=== PATIENT | female | born 1975 | race Caucasian/White ===

== ENCOUNTER 2018-12-01 06:00 | Emergency (ER) | payer MEDICAID ==
--- NOTE | 2018-12-01 06:04 | EDPHY ---
H & P Source: Patient Exam Limitations: No limitations - Medical/Surgical History Hx Asthma: No Hx Chronic Respiratory Disease: No Hx Diabetes: No Hx Cardiac Disease: No Hx Renal Disease: No Hx Cirrhosis: No Hx Alcoholism: No Hx HIV/AIDS: No Hx Splenectomy or Spleen Trauma: No Other PMH: HTN,DEPRESSION,ANXIETY - Family History Significant Family History: No pertinent family hx - Social History Smoking Status: Current every day smoker Alcohol Use: Other (Alcoholism in remission on naltrexone weekly) Drug Use: None Time Seen by Provider: 12/01/18 06:03 HPI/ROS: CHIEF COMPLAINT: Severe nausea, vomiting, abdominal pain HISTORY OF PRESENT ILLNESS: This is a 43-year-old female who went to bed last night at midnight. She was feeling well. She does note that she was a former drinker as of 6 months ago and now is on a current once a week shot of Vivitrol open (naltrexone close) for her alcoholism. She states that she has never been addicted to any other agents such as narcotics, benzodiazepines, or street drugs. Dinner last night consisted of chicken feed he does at around 6-7 p.m. No travel outside the country. No recent antibiotic use. No bad water sources such as camping. No one else is ill. She woke at 5:00 a.m. With profound sense of nausea. By her arrival here at 6: 00 a.m. She had already vomited 6 times with 3 different trips to the bathroom. At no point was emesis bloody or black. She has had no diarrhea. She cannot be certain but does not believe there was really abdominal pain to speak of at beginning when she woke up. Nonetheless she did develop some pain over the time. This is bilateral upper quadrants across the top. Does not involve the lower quadrants. Does not radiate to the back. She has never had pancreatitis. P: Not better after vomiting Q: Ache R: Upper abdomen without radiation to the chest S: Moderate T: Onset in the last hour, no prior such episodes REVIEW OF SYSTEMS: Constitutional: No fever, no chills. Eyes: No discharge ENT: No sore throat. Cardiovascular: No chest pain, no palpitations. Respiratory: No cough, shortness of breath, or wheezing. Gastrointestinal: See above Genitourinary: No hematuria or frequency. Musculoskeletal: No back pain. Skin: No rashes. Neurological: No headache. A 10 system review of systems was performed and is negative except for the noted findings in the HPI. (Cr Tamez) - Physical Exam Exam: General Appearance: Alert, moderate distress exhibiting hyper ventilation as well as some diaphoresis. Afebrile. Normal phonation. No respiratory distress. Eyes: Pupils equal and round no pallor or injection. No icterus ENT, Mouth: Mucous membranes slightly dry Pharynx without erythema or exudate. TM Clear. Neck: No adenopathy. Supple. No JVD. Trachea in midline. Respiratory: There are no retractions, lungs are clear to auscultation. Cardiovascular: Regular rate and rhythm. Abdomen: Soft, mild tender in the right upper quadrant more so than the left. Bowel sounds normal. Neurological: Ox3. No motor weakness. Sensation intact. Gait nl. Skin: Warm and dry, no rashes. Musculoskeletal: No joint swelling. Extremities: No edema. Homans sign negative. No cords. Psychiatric: Normal affect. Patient is oriented X 3, anxious. There is no agitation (Cr Tamez) Constitutional: Initial Vital Signs Temperature (C) 36.8 C 12/01/18 06:09 Heart Rate 99 12/01/18 06:09 Respiratory Rate 20 12/01/18 06:09 Blood Pressure 134/84 H 12/01/18 06:09 O2 Sat (%) 99 12/01/18 06:09 O2 Delivery Mode Room Air Allergies/Adverse Reactions: No Known Allergies Allergy (Verified 06/29/14 09:01) Home Medications: Medication Instructions Recorded Atenolol 05/07/13 Ortho Tri-Cyclen Lo 05/07/13 Paroxetine HCl 05/07/13 Spironolactone 12/01/18 Medical Decision Making ED Course/Re-evaluation: EKG: Essentially normal sinus rhythm with a rate of 64 with some baseline wandering secondary to artifact with normal T-waves, QTC is 463. Upon initial evaluation she continued to complain was sit for sleep about her nausea. Thus once the QTC was obtained at 463 and went ahead and ordered the following: Ativan 0.5 mg IV Phenergan 12.5 mg IV Care was turned over to Dr. Dominique at 7:00 a.m. At that time laboratory studies were pending as well as ultrasound the abdomen to rule out gallstones. (Cr Tamez) Other Provider: [address] Tamez. 43-year-old woman woke up at 5:00 a.m. This morning with acute onset of nausea vomiting. After several episodes of emesis she developed epigastric abdominal pain. No blood in her emesis. No dark tarry stools. Has been in her usual state of health. Abdomen is soft with some moderate epigastric tenderness, no right upper quadrant tenderness, no lower abdominal tenderness. 0810 patient is feeling better. Laboratory tests are unremarkable. Ultrasound shows a gallstone but no structure or the process. She is resting comfortably. No further vomiting. Abdomen is soft and benign. Plan will be for discharge home with follow-up with primary care physician as an outpatient. Will send her home with some oral nausea medications. (Mirza Dominique) - Data Points Medications Given: Discontinued Medications Fentanyl (Sublimaze) 50 mcg IVP EDNOW ONE Stop: 12/01/18 06:29 Last Admin: 12/01/18 06:57 Dose: Not Given Sodium Chloride (Ns) 1,000 mls @ 0 mls/hr IV ONCE ONE; Wide Open PRN Reason: Protocol Stop: 12/01/18 06:53 Last Admin: 12/01/18 06:56 Dose: 1,000 mls Ketorolac Tromethamine (Toradol) 15 mg IVP EDNOW ONE Stop: 12/01/18 06:49 Last Admin: 12/01/18 06:52 Dose: 15 mg Lorazepam (Ativan Injection) 0.5 mg IVP ONCE ONE Stop: 12/01/18 06:34 Last Admin: 12/01/18 06:40 Dose: 0.5 mg Ondansetron HCl (Zofran Odt 4 Mg Prepack#2) 1 btl TAKEHOME EDNOW ONE Stop: 12/01/18 08:13 Last Admin: 12/01/18 08:24 Dose: 1 btl Promethazine HCl (Phenergan) 12.5 mg IVP EDNOW ONE Stop: 12/01/18 06:29 Last Admin: 12/01/18 06:40 Dose: 12.5 mg Point of Care Test Results: CBC CBC Collection Date 12/01/18 CBC Collection Time 06:31 WBC 13.85 RBC 4.48 HGB 14 HCT 38.8 PLT 327 Neut # 11.36 Neut 82 LYMPH # 1.49 LYMPH 10.8 MCV 86.6 Chemistry 12/01/18 06:44 POC Sodium 136 mEq/L mEq/L (135-145) POC Potassium 3.8 mEq/L mEq/L (3.3-5.0) POC Chloride 106.0 mEq/L mEq/L (97-110) POC Total CO2 20 mEq/L L mEq/L (22-31) POC BUN 10 mg/dL mg/dL (7-23) POC Creatinine 1.1 mg/dL H mg/dL (0.6-1.0) POC Glucose 163 mg/dL H mg/dL (70-100) POC Calcium 9.4 mg/dL mg/dL (8.5-10.4) POC Total Bilirubin 0.7 mg/dL mg/dL (0.1-1.4) POC AST 41 IU/L IU/L (14-46) POC ALT 53 IU/L H IU/L (9-52) POC Alk Phosphatase 49 IU/L IU/L (38-126) POC Total Protein 6.9 g/dL g/dL (6.3-8.2) POC Albumin 4.1 g/dL g/dL (3.5-5.0) Urine Collection Date 12/01/18 Collection Time 07:55 HCG Results Negative Urine Dip Collection Date 12/01/18 Collection Time 07:55 Specific [place] (1.002-1.030) 1.015 PH (5.0-7.5) 8.5 Leukocytes (Negative) Negative Nitrites (Negative) Negative Protein (Negative) 2+ Glucose (Negative) Negative Ketones (Negative) Negative Urobilnogen (0.2-1.0 EU) 0.2 Bilirubin (Negative) Negative Blood (Negative) Negative Departure - Departure Disposition: Home, Routine, Self-Care Clinical Impression: Nausea & vomiting, Abdominal pain Condition: Good Instructions: Ondansetron (By mouth), Acute Nausea and Vomiting (ED) Additional Instructions: Follow up with primary care physician in 2-3 days for further evaluation. You may take Zofran as needed for nausea. Return to the emergency department for uncontrolled nausea vomiting, worsening pain, fevers or chills, fainting, or any other concerns. Referrals: Unknown,Unknown [Unknown] - As per Instructions
[2018-12-01] MEDS ORDERED: fentaNYL 100 MCG/2 ML INJ IVP ONE (06:28)
[2018-12-01] MEDS ORDERED: PROMETHAZINE HCL 25 MG/ML INJ IVP ONE (06:28)
[2018-12-01] MEDS ORDERED: LORazepam 2 MG/ML INJ IVP ONE (06:33)
[2018-12-01] MEDS ORDERED: fentaNYL 100 MCG/2 ML INJ ONE (06:47)
[2018-12-01] MEDS ORDERED: KETOROLAC 15 MG/1 ML SDV IVP ONE (06:48)
[2018-12-01] MEDS ORDERED: NS 1,000 ML IV ONE (06:52)
[2018-12-01] MEDS ORDERED: ONDANSETRON 4MG PREPACK#2 BTL TAKEHOME ONE (08:12)
[2018-12-01 08:16] VITALS: BP 126/80
--- NOTE | 2018-12-02 22:55 | CPEKG ---
Test Reason : OPEN Blood Pressure : / mmHG Vent. Rate : 064 BPM Atrial Rate : 065 BPM P-R Int : 141 ms QRS Dur : 097 ms QT Int : 448 ms P-R-T Axes : 007 -16 082 degrees QTc Int : 463 ms Sinus rhythm Borderline left axis deviation Low voltage, extremity and precordial leads Nonspecific T abnormalities, lateral leads Confirmed by Cr Tamez ([id number]) on 12/02/2018 10:55:01 PM Referred By: Cr Tamez Confirmed By:Cr Tamez
== END 2018-12-01 08:34 | disposition home or self-care (01) ==
LOC: CED 06:00
DX: R11.2 Nausea with vomiting, unspecified (principal); R10.13 Epigastric pain; K57.30 Diverticulosis of large intestine without perforation or abscess without bleeding; K76.0 Fatty (change of) liver, not elsewhere classified; E86.9 Volume depletion, unspecified; I10 Essential (primary) hypertension; F41.9 Anxiety disorder, unspecified; F32.9 Major depressive disorder, single episode, unspecified; F17.200 Nicotine dependence, unspecified, uncomplicated
CPT/HCPCS: 76705-PO; 80053-ER; 81025-ER; 85025-QW-ER; 96361-ER; 96374-ER; 96375-ER; 99284-ER; J1885; J2060; J2550; J3010

== ENCOUNTER 2018-12-03 01:13 | Inpatient (IN) | payer MEDICAID ==
[2018-12-03] MEDS ORDERED: ONDANSETRON DISINTEGRATING 4 MG TAB ONE (01:33)
--- NOTE | 2018-12-03 01:33 | EDPHY ---
H & P Stated Complaint: severe LUQ pain Time Seen by Provider: 12/03/18 01:33 - Personal History LMP (Females 10-55): 8-14 Days Ago Current Tetanus Diphtheria and Acellular Pertussis (TDAP): Yes - Medical/Surgical History Hx Asthma: No Hx Chronic Respiratory Disease: No Hx Diabetes: No Hx Cardiac Disease: No Hx Renal Disease: No Hx Cirrhosis: No Hx Alcoholism: No Hx HIV/AIDS: No Hx Splenectomy or Spleen Trauma: No Other PMH: HTN,DEPRESSION,ANXIETY - Social History Smoking Status: Current every day smoker Constitutional: Initial Vital Signs Temperature (C) 37 C 12/03/18 01:19 Heart Rate 67 12/03/18 01:19 Respiratory Rate 18 12/03/18 01:19 Blood Pressure 128/93 H 12/03/18 01:19 O2 Sat (%) 97 12/03/18 01:19 O2 Delivery Mode Room Air Allergies/Adverse Reactions: No Known Allergies Allergy (Verified 12/03/18 01:18) Home Medications: Medication Instructions Recorded Atenolol 05/07/13 Ortho Tri-Cyclen Lo 05/07/13 Paroxetine HCl 05/07/13 Spironolactone 12/01/18
[2018-12-03] MEDS ORDERED: ONDANSETRON DISINTEGRATING 4 MG TAB PO ONE (01:35)
--- NOTE | 2018-12-03 01:41 | EDPHY ---
H & P Stated Complaint: severe LUQ pain Time Seen by Provider: 12/03/18 01:33 HPI/ROS: CHIEF COMPLAINT: Abdominal pain, left greater than right HISTORY OF PRESENT ILLNESS: This is a 43-year-old female who is having recurrent abdominal pain. She had her 1st bout in the wee hours of the morning at about 5:00 a.m. On December 01. At that time she was seen by me and noted to be pacing, hot having difficulty holding still and particularly anxious. She was given doses of Phenergan 12.5 mg IV as well as Ativan 0.5 mg IV. Within 10 min she was resting comfortably in a side position on her left and had minimal pain. Subsequent evaluation at that time included a normal white count, normal liver functions, with a gallstone without signs of cholecystitis. She reports that when she went home the morning of the she has centrally slept the whole day until the next morning. On this morning, December 02 she had to go to work as there is no replacement. 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 There she felt particularly fatigued but there is no pain. In fact she had some form of Sonic breakfast for lunch and then dinner as well. She was feeling fine. Once home there was a sense of mild discomfort around 6:00 p.m. But she was able to fall sleep. She woke up at around midnight tonight with a sense of severe pain left greater than right it would not settle down. Thus she came for evaluation. She is not taking any for the pain. The pain did not radiate. It is strictly in the upper abdomen left more so than right and does not radiate to the shoulder blade or lower abdomen. There has been no difficulty with urination or burning as well as no hematuria. She has never had pains like these before. No associated nausea vomiting or diarrhea. Of note, she has a prior problem with alcoholism and takes meloxicam and shots weekly for such. P: Not worse with movement or breathing. Q: An ache R: Left upper quadrant without radiation S: Severe T: Woke up from sleep at midnight REVIEW OF SYSTEMS: Constitutional: No fever, no chills. Eyes: No discharge ENT: No sore throat. Cardiovascular: No chest pain, no palpitations. Respiratory: No cough, shortness of breath, or wheezing. Gastrointestinal: See above Genitourinary: No hematuria or frequency. Musculoskeletal: No back pain. Skin: No rashes. Neurological: No headache. A 10 system review of systems was performed and is negative except for the noted findings in the HPI. Source: Patient Exam Limitations: Clinical condition - Personal History LMP (Females 10-55): 8-14 Days Ago Current Tetanus Diphtheria and Acellular Pertussis (TDAP): Yes - Medical/Surgical History Hx Asthma: No Hx Chronic Respiratory Disease: No Hx Diabetes: No Hx Cardiac Disease: No Hx Renal Disease: No Hx Cirrhosis: No Hx Alcoholism: No Hx HIV/AIDS: No Hx Splenectomy or Spleen Trauma: No Other PMH: HTN,DEPRESSION,ANXIETY - Social History Smoking Status: Current every day smoker Alcohol Use: Other (Former drinker, on Naloxone shots weekly) Drug Use: None (Former drinker, taking Naloxne shots) - Physical Exam Exam: General Appearance: Alert, no distress. Afebrile. Normal phonation. No respiratory distress. No odor of alcohol Eyes: Pupils equal and round no pallor or injection. No icterus ENT, Mouth: Mucous membranes slightly dry Pharynx without erythema or exudate. TM Clear. Neck: No adenopathy. Supple. No JVD. Trachea in midline. Respiratory: There are no retractions, lungs are clear to auscultation. Cardiovascular: Regular rate and rhythm, without murmur. Abdomen: Soft, there is diffuse tenderness or present to the left upper quadrant enterolysis sent the right upper quadrant. There is no tenderness in the left or right lower quadrants. No rebound or guarding. There is percussion tenderness left upper quadrant. There is no CVA tenderness. Neurological: Ox3. No motor weakness. Sensation intact. Gait nl. Skin: Warm and dry, no rashes. Musculoskeletal: No joint swelling. Extremities: No edema. Homans sign negative. No cords. Psychiatric: Normal affect. Patient is oriented X 3. There is no agitation Constitutional: Initial Vital Signs Temperature (C) 37 C 12/03/18 01:19 Heart Rate 67 12/03/18 01:19 Respiratory Rate 18 12/03/18 01:19 Blood Pressure 128/93 H 12/03/18 01:19 O2 Sat (%) 97 12/03/18 01:19 O2 Delivery Mode Room Air Allergies/Adverse Reactions: No Known Allergies Allergy (Verified 12/03/18 01:18) Home Medications: Medication Instructions Recorded Atenolol 05/07/13 Ortho Tri-Cyclen Lo 05/07/13 Paroxetine HCl 05/07/13 Spironolactone 12/01/18 Naltrexone 12/03/18 Medical Decision Making - Diagnostics EKG Interpretation: EKG: Interpreted by me contemporaneously. Rhythm: Normal sinus rhythm. Heart rate 63 QTc 422 QRS: normal STT segment: normal T Waves: Normal Q waves none Summary: Normal Ekg Imaging Results: Ultrasound report received via fax transmission indicative of cholelithiasis with cholecystitis with gallbladder wall thickening of 5.1 mm however the common bile duct is not thick at 5.1 mm as well. Pancreas difficult to evaluate due to underlying gas. Her lipase did come back at 11:00 a.m. Suggestive of pancreatitis. ED Course/Re-evaluation: Upon initial presentation given her circumstances of the prior visit some 40 hr ago as well as her clinical response and she was given the following: Phenergan 12.5 mg IV. She had some improvement however the pain was still persistent thus, she was given the following: Ativan 0.5 mg IV Toradol 15 mg IV 0240 - I met with the patient again. Exam remains the same, persistent tenderness in the upper abdomen. However of note following: The pain is moderately better but still persistent She appears sedated, so probably more than I would have expected given 0.5 of Ativan. The white count is not elevated at 13+ Mild LFT abnormalities in ALT and AST but normal bili. Given the clinical constellation I suspected with bili colic on the and then today some evidence to suggest cholecystitis. Thereby I will make a call for admission. She agrees with [facility]. Case was discussed with the hospitalist service who recommends ultrasound to discern if there is in fact cholecystitis. She that the be the case that we would do a direct admission to General surgery. However if that is not the case then should be admission to the hospitalist service with consideration for HIDA scan in the morning. US showed: GB wall thickening at 5.1 mm with small pericholecystic fluid. CBD = 5.1. c/w Cholecystitis. Pain continues to be a problem with mediocre control with Ativan, Phenergan, Toradol and Ketamine titration. Unable to get narcotics due to naltrexone injections. We are not equiped for Ketamine drip so will re bolus as has worn off in the pas 2 hours. Duane Cagle paged at 04:50. Case d/w. Dr. Zepeda. recommends admit to Hospitalist Service. D/w Dr. Carmona. Differential Diagnosis: Differential diagnosis includes, but is not limited to: Gastroenteritis, dehydration, diverticulitis, hepatitis, pancreatitis, renal colic, kidney stones, ureterolithiasis, cholecystitis, appendicitis, gastritis, mesenteric adenitis, food poisoning, bacterial dysentery. - Data Points Laboratory Results: 12/03/18 12/03/18 12/03/18 02:05 02:05 02:04 POC Blood Source VENOUS Patient Temperature 37.0 DEGREES DEGREES POC VBG pH 7.52 H (7.31-7.42) POC VBG pCO2 21 mmHg L mmHg (40-44) POC VBG pO2 48 mmHg H mmHg (35-40) POC VBG HCO3 17 mEq/L L mEq/L (22-26) POC VBG Total CO2 18 mEq/L L mEq/L (21-27) POC VBG Base Excess -6.0 mEq/L L mEq/L (-2.5-2.5) POC Mix VBG O2 Sat 89 % H % (65-75) POC Sodium 142 mEq/L mEq/L (135-145) POC Potassium 4.0 mEq/L mEq/L (3.3-5.0) POC Chloride 111.0 mEq/L H mEq/L (97-110) POC Total CO2 22 mEq/L mEq/L (22-31) POC BUN 15 mg/dL mg/dL (7-23) POC Creatinine 1.0 mg/dL mg/dL (0.6-1.0) POC Glucose 115 mg/dL H mg/dL (70-100) POC Lactic Acid Cral[place] 1.4 mmol/L mmol/L (0.7-2.1) POC Calcium 9.4 mg/dL mg/dL (8.5-10.4) POC Total Bilirubin 0.7 mg/dL mg/dL (0.1-1.4) POC AST 114 IU/L H IU/L (14-46) POC ALT 134 IU/L H IU/L (9-52) POC Alk Phosphatase 66 IU/L IU/L (38-126) POC Troponin I 0.01 ng/mL ng/mL (0.00-0.08) POC Total Protein 7.1 g/dL g/dL (6.3-8.2) POC Albumin 3.9 g/dL g/dL (3.5-5.0) Lipase 12/03/18 01:55 POC Blood Source Patient Temperature POC VBG pH POC VBG pCO2 POC VBG pO2 POC VBG HCO3 POC VBG Total CO2 POC VBG Base Excess POC Mix VBG O2 Sat POC Sodium POC Potassium POC Chloride POC Total CO2 POC BUN POC Creatinine POC Glucose POC Lactic Acid Carlos POC Calcium POC Total Bilirubin POC AST POC ALT POC Alk Phosphatase POC Troponin I POC Total Protein POC Albumin Lipase 1168 IU/L H IU/L (23-300) Medications Given: Discontinued Medications Ketamine HCl 8 mg/ Syringe 0.16 mls @ 9.6 mls/hr IVP ONCE ONE Stop: 12/03/18 02:44 Last Admin: 12/03/18 03:12 Dose: 0.16 mls Ketamine HCl 8 mg/ Syringe 0.16 mls @ 9.6 mls/hr IVP ONCE ONE Stop: 12/03/18 04:46 Last Admin: 12/03/18 04:55 Dose: 0.16 mls Ketorolac Tromethamine (Toradol) 15 mg IVP EDNOW ONE Stop: 12/03/18 02:05 Last Admin: 12/03/18 02:15 Dose: 15 mg Ketorolac Tromethamine (Toradol) 7.5 mg IVP EDNOW ONE Stop: 12/03/18 04:01 Last Admin: 12/03/18 04:48 Dose: 7.5 mg Lorazepam (Ativan Injection) 0.5 mg IVP ONCE ONE Stop: 12/03/18 02:05 Last Admin: 12/03/18 02:14 Dose: 0.5 mg Lorazepam (Ativan Injection) 0.25 mg IVP EDNOW ONE Stop: 12/03/18 04:46 Last Admin: 12/03/18 04:59 Dose: 0.25 mg Ondansetron HCl (Zofran Odt) 4 mg PO EDNOW ONE Stop: 12/03/18 01:36 Last Admin: 12/03/18 01:36 Dose: 4 mg Promethazine HCl (Phenergan) 12.5 mg IVP ONCE ONE Stop: 12/03/18 01:44 Last Admin: 12/03/18 02:14 Dose: 12.5 mg Promethazine HCl (Phenergan) 6.25 mg IVP ONCE ONE Stop: 12/03/18 03:18 Last Admin: 12/03/18 03:20 Dose: 6.25 mg Point of Care Test Results: CBC CBC Collection Date 12/03/18 CBC Collection Time 01:45 WBC 10.10 RBC 4.30 HGB 13.3 HCT 37.6 PLT 346 Neut # 6.96 Neut 68.9 LYMPH # 1.95 LYMPH 19.3 MCV 87.4 Chemistry 12/03/18 12/03/18 02:05 02:04 POC Sodium 142 mEq/L mEq/L (135-145) POC Potassium 4.0 mEq/L mEq/L (3.3-5.0) POC Chloride 111.0 mEq/L H mEq/L (97-110) POC Total CO2 22 mEq/L mEq/L (22-31) POC BUN 15 mg/dL mg/dL (7-23) POC Creatinine 1.0 mg/dL mg/dL (0.6-1.0) POC Glucose 115 mg/dL H mg/dL (70-100) POC Calcium 9.4 mg/dL mg/dL (8.5-10.4) POC Total Bilirubin 0.7 mg/dL mg/dL (0.1-1.4) POC AST 114 IU/L H IU/L (14-46) POC ALT 134 IU/L H IU/L (9-52) POC Alk Phosphatase 66 IU/L IU/L (38-126) POC Troponin I 0.01 ng/mL ng/mL (0.00-0.08) POC Total Protein 7.1 g/dL g/dL (6.3-8.2) POC Albumin 3.9 g/dL g/dL (3.5-5.0) Blood Gas/Lactic Acid-Arterial 12/03/18 02:05 POC Blood Source VENOUS Blood Gas/Lactic Acid-Venous 12/03/18 02:05 POC VBG pH 7.52 H (7.31-7.42) POC VBG pCO2 21 mmHg L mmHg (40-44) POC VBG pO2 48 mmHg H mmHg (35-40) POC VBG HCO3 17 mEq/L L mEq/L (22-26) POC VBG Total CO2 18 mEq/L L mEq/L (21-27) POC VBG Base Excess -6.0 mEq/L L mEq/L (-2.5-2.5) POC Mix VBG O2 Sat 89 % H % (65-75) POC Lactic Acid Carlos 1.4 mmol/L mmol/L (0.7-2.1) Urine Dip Collection Date 12/03/18 Collection Time 01:55 Specific Tripp (1.002-1.030) 1.025 PH (5.0-7.5) 6.0 Leukocytes (Negative) Trace Nitrites (Negative) Positive Protein (Negative) Trace Glucose (Negative) Negative Ketones (Negative) Trace Urobilnogen (0.2-1.0 EU) 2.0 Bilirubin (Negative) Test Not Performed Blood (Negative) 1+ Departure - Departure Disposition: [facility] Inpatient Acute Clinical Impression: Acute cholecystitis Abdominal pain Qualifiers: Abdominal location: upper abdomen, unspecified Qualified Code(s): R10.10 - Upper abdominal pain, unspecified Pancreatitis Qualifiers: Chronicity: acute Pancreatitis type: biliary Acute pancreatitis complication: unspecified Qualified Code(s): K85.10 - Biliary acute pancreatitis without necrosis or infection Condition: Fair Referrals: Patient,NotPresent [Primary Care Provider] - As per Instructions
[2018-12-03] MEDS ORDERED: PROMETHAZINE HCL 25 MG/ML INJ IVP ONE ×2 (01:43→03:17)
[2018-12-03] MEDS ORDERED: LORazepam 2 MG/ML INJ IVP ONE ×3 (02:04→04:46)
[2018-12-03] MEDS ORDERED: KETOROLAC 15 MG/1 ML SDV IVP ONE ×2 (02:04→04:00)
[2018-12-03] MEDS ORDERED: KETAMINE IVP ONE ×2 (02:43→04:45)
[2018-12-03] MEDS ORDERED: KETAMINE 500 MG/10 ML VIAL ONE (03:02)
[2018-12-03] MEDS ORDERED: KETOROLAC 15 MG/1 ML SDV ONE (03:50)
[2018-12-03] MEDS ORDERED: NS 1,000 ML IV ONE (04:57)
--- NOTE | 2018-12-03 05:09 | CPEKG ---
Test Reason : OPEN Blood Pressure : / mmHG Vent. Rate : 063 BPM Atrial Rate : 063 BPM P-R Int : 141 ms QRS Dur : 094 ms QT Int : 412 ms P-R-T Axes : -08 -30 047 degrees QTc Int : 422 ms Sinus rhythm Left axis deviation Low voltage, precordial leads Confirmed by Cr Tamez ([id number]) on 12/03/2018 5:09:07 AM Referred By: Cr Tamez Confirmed By:Cr Tamez
[2018-12-03] MEDS ORDERED: ACETAMINOPHEN 325 MG TAB PO PRN ×2 (07:00→08:07)
[2018-12-03] MEDS ORDERED: PROMETHAZINE HCL 25 MG/ML INJ IVP PRN (07:00)
[2018-12-03] MEDS ORDERED: ONDANSETRON 4 MG/2 ML VIAL IVP PRN ×3 (07:00→16:39)
[2018-12-03] MEDS ORDERED: ONDANSETRON DISINTEGRATING 4 MG TAB PO PRN ×2 (07:00→08:07)
[2018-12-03] MEDS ORDERED: NS 1,000 ML IV SCH (07:15)
[2018-12-03] MEDS ORDERED: CIPROFLOXACIN 400 MG/DEXTROSE 200 ML IV SCH (09:00)
[2018-12-03] MEDS: NICOTINE 14 MG/24 HR PATCH TD SCH (09:27)
--- NOTE | 2018-12-03 09:32 | GHP ---
[f rep st] HISTORY AND PHYSICAL DATE OF ADMISSION: 12/03/2018 CHIEF COMPLAINT: Right upper quadrant pain that radiates over to the left upper quadrant. HISTORY OF PRESENT ILLNESS: The patient is a 43-year-old female who has a past medical history of alcohol use and receives monthly naltrexone injections, who presented to the Urgent Care with recurrent abdominal pain. Her initial symptoms started at 5 in the morning on December 01. She was seen at that at the emergency room and was extremely anxious. She was given Phenergan as well as Ativan and felt better. She was then discharged home. Then on December 02, she went to work. 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 She was uncomfortable throughout the day. When she got home in the evening, she started to feel poorly. She had severe abdominal pain in the left greater than the right. She came to the emergency room for further evaluation. The pain does not radiate. She has had no fevers, but has frequent bouts of chills. The pain does not increase with eating. She had 3 bouts of emesis yesterday and 2 this morning. She denies any diarrhea. During my interview, she is not very talkative and would prefer to sleep. She had an abdominal ultrasound that was performed that showed cholelithiasis with gallbladder wall thickening and pericholecystic fluid consistent with acute cholecystitis. PAST SURGICAL HISTORY: None. PAST MEDICAL HISTORY: 1. Hypertension. 2. Depression. 3. Anxiety. 4. 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 SOCIAL HISTORY: She is currently in a relationship. She has 2 children. She is a current smoker and smokes approximately a pack a week. 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 FAMILY HISTORY: Her mom is healthy. Her father is in hospice. She did not want to state why. ALLERGIES: No known allergies. HOME MEDICATIONS: Include Aldactone, Paxil, control, naltrexone, and atenolol. Please note the doses of these medications have not been confirmed at time of dictation. REVIEW OF SYSTEMS: A 10-point review of system was performed and was negative other than pertinent positives in the HPI and past medical history. PHYSICAL EXAM: GENERAL: The patient is a 43-year-old female who appears quite uncomfortable during my interview and appears her stated age. VITAL SIGNS: Blood pressure is 143/93, heart rate is 61, respiratory rate of 14, O2 sats on room air 94%, temperature is 36.7 Celsius. EYES: Pupils are equal and reactive. EOMs are intact. No conjunctival injection noted. ENT: Normal ears , hearing intact. Oral airway is dry. NECK: Trachea is midline. CARDIOVASCULAR : She is in a regular rate and rhythm. No murmurs, rubs, or gallops noted. CHEST: Lungs normal respiratory effort. ABDOMEN: Soft. It is tender particularly in the right upper quadrant area without rebound or guarding. SKIN : Her face is very flushed. MUSCULOSKELETAL: Moving her upper and lower extremity strength without difficulty. PSYCHIATRIC: She is alert and oriented. Her affect is very flat. She appears to have normal judgment, insight and normal memory. DATA: Reviewed. Ultrasound was performed which shows cholelithiasis with cholecystitis with gallbladder wall thickening of 5.1 mm. However, the common bile duct is not thick at 5.1 mm. The pancreas was difficult to evaluate due to underlying gas. LABORATORY DATA: From [facility] shows a white blood cell count of 10, hemoglobin 13.3 , hematocrit of 37.6. Chemistry and liver enzymes are noted as sodium of 142, chloride of 111, glucose of 115. Her venous lactic acid is 1.4. Her AST is 114 , ALT is 134, alkaline phosphatase is 66, lipase is 1168. I reviewed the patient's care with greg Alonzo for the hospitalist group. ASSESSMENT/PLAN: 1. Acute cholecystitis. Will treat her with ceftriaxone and Flagyl. Will contact the surgical team in regard to the patient's admission to the hospital. Will keep her n.p.o. and give her supportive care. 2. Pain due to this. She is on naltrexone. She said her last dose was approximately 2 weeks ago. If she needs opioids, it is important to note that she will respond to a lower dose. The recommendation is for management of her pain to consider any alternative opioid therapy. For now will treat her with Toradol, Tylenol and Phenergan or Zofran for the nausea. 3. Concern for pancreatitis with an elevated lipase. Likely has gallstone pancreatitis. Will give her supportive care with IV hydration. 4. Nicotine dependence. Will order her a Nicotine patch. 5. Deep venous thrombosis prophylaxis low risk. Will order athrombotic pumps. 6. Hypertension. Resumed home medication. 7. Depression. Resumed home medication. 8. She will likely require greater than a 2-midnight stay for the acute cholecystitis, as well as pancreatitis. 9. Code status: Full. /[id number]/MODL MTDD
[2018-12-03] MEDS: traMADol 50 MG TAB PO PRN (10:15)
[2018-12-03] MEDS: ATENOLOL 25 MG TAB PO SCH (10:19)
--- NOTE | 2018-12-03 10:50 | PDMN ---
Medical Necessity Medical necessity: [facility] M555 Gallbladder or Bile Duct Inflammation or Stone, A-2 days: 43 yo w/ severe abd pain. Eval reveals acute cholecystitis w/ concern for pancreatitis. RUQ pain. WBC 10.1 per ED report, Lipase 1168, AST 114, ALT 134. Surg consult. Meets [facility] IP status for M555 for acute choleystitis w/ RUQ tenderness, WBC>10 and AST/ALT.1.5x the norm. Hx alcoholism on Naltrex, HTN, depression, anxiety
[2018-12-03] MEDS: KETOROLAC 15 MG/1 ML SDV IVP SCH ×3 (11:24→23:41)
[2018-12-03] MEDS: PARoxetine HCL 20 MG TAB PO SCH (11:37)
--- NOTE | 2018-12-03 12:07 | GCON ---
[f rep st] CONSULTATION CHIEF COMPLAINT: Abdominal pain. HISTORY OF PRESENTING ILLNESS: 43-year-old female with epigastric and left upper quadrant abdominal pain that initially onset 2 days ago during slumber. This pain was mildly improved the following day. She denies eating any meals which improved her nausea and pain. Does not appear to be associated with food. Also complains of nausea with one episode of bilious emesis. Has been chilled, but has not taken a temperature at home. Her daughter pointed out yesterday the patient looked jaundiced. Bowel movements and urination normal. Denies acholic stools. Denies dark-colored urine. She has significant history of alcohol abuse. The patient states that she quit drinking alcohol 6 months ago due to fatty liver disease, possible alcoholic pancreatitis, and interference with her work and social life. Her pain has since improved since her hospitalization and administration of analgesics. PAST MEDICAL HISTORY: Depression, anxiety, obsessive-compulsive disorder, and hypertension. HOME MEDICATIONS: Tri Sprintec, doxycycline, atenolol, alprazolam, spironolactone, and Paxil. 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 She lives at home alone. She has 2 children. She smokes tobacco and marijuana, sober of alcohol for 6 months. FAMILY HISTORY: Noncontributory. REVIEW OF SYSTEMS: A 10-point review of system was reviewed and otherwise negative except for as stated in HPI above. PHYSICAL EXAM: VITAL SIGNS: Afebrile. Blood pressure 150/93, heart rate 62, respiratory rate 16, O2 saturation 98 on room air. Temperature 37.1 degrees Celsius. GENERAL: Appears comfortable in bed, mildly sedated. HEENT: Anicteric. CARDIOVASCULAR: Regular rate and rhythm. LUNGS: Clear to auscultation bilaterally. ABDOMEN: Obese, soft, minimal epigastric and left upper quadrant tenderness on palpation. No rebound or guarding. Negative Olea sign. EXTREMITIES: Unremarkable. NEUROLOGIC: Nonfocal. SKIN: No rashes. Normal. LAB RESULTS: Electrolytes overall unremarkable. Lipase 1168, AST 114, ALT 134 , total bilirubin 0.7. IMAGING: Abdominal ultrasound directly reviewed on PACS with Dr. Spivey; cholelithiasis with gallbladder wall thickening and pericholecystic fluid consistent with acute cholecystitis. ASSESSMENT: Acute cholecystitis and pancreatitis. PLAN: Recommend laparoscopic cholecystectomy with intraoperative cholangiogram given her mildly elevated liver enzyme, lipase, and ultrasound imaging. Abdominal pain and labs consistent with pancreatitis, likely gallstone pancreatitis vs alcoholic pancreatitis given her imaging and reported sobriety 6 months. Risks and benefits of procedure were reviewed including bleeding, infection, retained gallstone necessitating ERCP, open conversion and bile duct injury. Expected recovery reviewed with the patient. We will arrange for operating room time this afternoon with Dr. Simon. Continue with Flagyl and ceftriaxone. Diet NPO. All patient's questions were addressed. The patient's case was discussed with Dr. Simon. /[id number]/MODL MTDD
[2018-12-03] MEDS ORDERED: LR 1,000 ML IV ONE (12:46)
[2018-12-03] MEDS ORDERED: LIDOCAINE 1% 2 ML INJ ONE (12:48)
--- NOTE | 2018-12-03 14:26 | SOAPPROG ---
SOAP Progress Note Assessment/Plan: Assessment/Plan: Patient seen and examined. Consultation note from Ies[facility] RODRIGUE[facility] summarizes findings. Likely gallstone pancreatitis plan on laparoscopic cholecystectomy with intraoperative cholangiogram. All questions addressed. Written consent obtained. Patient is already on antibiotics which can be discontinued after surgery. 12/03/18 14:25 Objective: Vital Signs Temp Pulse Resp BP Pulse Ox 36.8 C 63 16 123/84 H 97 12/03/18 13:01 12/03/18 13:01 12/03/18 13:01 12/03/18 13:01 12/03/18 13:01 12/02/18 12/03/18 12/04/18 05:59 05:59 05:59 Intake Total 1000 150 Output Total 200 Balance 800 150 ICD10 Worksheet Patient Problems: Problems Problem Status Onset Abdominal pain Acute Acute cholecystitis Acute Pancreatitis Acute
--- NOTE | 2018-12-03 14:48 | ASMTCMCOM ---
CM Note CM Note Notes: Pt is a 43 y/o female admitted for right upper quadrant pain. Pt went to have her gallbladder removed this afternoon and CM was unable to meet w/ her. Pt has a hx of etoh and has been sober for 6 months. Pt gets naltrexone injections to help w/ etoh cravings. CM made a referral to [facility]. Pt has a hx of depression and anxiety. 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 Pt will most likely d/c independent. No therapies ordered at this time. CM available for changes. Plan: Independent Date Signed: 12/03/2018 02:46 PM Electronically Signed By:ANDREA Ahn
--- NOTE | 2018-12-03 14:59 | PDANEPAE ---
ANE Past Medical History - Cardiovascular History Hx Hypertension: Yes Hx Arrhythmias: No Hx Chest Pain: No Hx Coronary Artery / Peripheral Vascular Disease: No Hx CHF / Valvular Disease: No Hx Palpitations: No - Pulmonary History Hx COPD: No Hx Asthma/Reactive Airway Disease: No Hx Recent Upper Respiratory Infection: No Hx Oxygen in Use at Home: No Hx Sleep Apnea: No Sleep Apnea Screening Result - Last Documented: Positive - Neurologic History Hx Cerebrovascular Accident: No Hx Seizures: No Hx Dementia: No - Endocrine History Hx Diabetes: No - Neurological & Psychiatric Hx Hx Neurological and Psychiatric Disorders: Yes Neurological / Psychiatric History Comment: Anxiety, OCD - GI History Hx Gastrointestinal Disorders: Yes Gastrointestinal History Comment: Acute cholecystitis and gallstone pancreatitis ANE Review of Systems Review of Systems: ANE Patient History - Allergies Allergies/Adverse Reactions: No Known Allergies Allergy (Verified 12/03/18 01:18) - Home Medications Home Medications: Atenolol [Tenormin 25 mg (*)] 25 mg PO DAILY 05/07/13 [Last Taken 12/02/18] PARoxetine HCL [Paxil] 40 mg PO DAILY 05/07/13 [Last Taken 12/02/18] Spironolactone [Aldactone 25 MG (*)] 25 mg PO DAILY 12/01/18 [Last Taken ] ALPRAZolam [Xanax 0.5 MG (*)] 0.5 - 1 mg PO DAILY PRN 12/03/18 [Last Taken Unknown] Doxycycline Hyclate [Vibramycin 100 MG (*)] 100 mg PO BID 12/03/18 [Last Taken 12/02/18 21:00] Tri-Sprintec 1 each PO DAILY 12/03/18 [Last Taken 12/02/18] - NPO status NPO Since - Liquids (Date): 12/02/18 NPO Since - Liquids (Time): 00:00 NPO Since - Solids (Date): 12/02/18 NPO Since - Solids (Time): 00:00 - Smoking Hx Smoking Status: Current every day smoker - Alcohol Use Alcohol Use: Other (Former drinker, on Naloxone shots weekly) ANE Labs/Vital Signs - Vital Signs Blood Pressure: 123/84 Heart Rate: 63 Respiratory Rate: 16 O2 Sat (%): 97 Height: 167.64 cm Weight: 77.111 kg ANE Physical Exam - Airway Neck exam: FROM Mallampati Score: Class 2 Mouth exam: normal dental/mouth exam - Pulmonary Pulmonary: clear to auscultation - Cardiovascular Cardiovascular: regular rate and rhythym - ASA Status ASA Status: II ANE Anesthesia Plan Anesthesia Plan: general endotracheal anesthesia
[2018-12-03] MEDS ORDERED: fentaNYL 100 MCG/2 ML INJ IVP ONE ×2 (15:04→15:31)
[2018-12-03] MEDS ORDERED: fentaNYL 100 MCG/2 ML INJ ONE ×2 (15:04→17:36)
[2018-12-03] MEDS ORDERED: MIDAZOLAM 2 MG/2 ML VIAL IVP ONE (15:34)
[2018-12-03] MEDS ORDERED: LIDOCAINE 1% 300 MG/30 ML SDV ONE (15:41)
[2018-12-03] MEDS ORDERED: BUPIVACAINE 0.5% 30 ML SDV ONE ×2 (15:42→15:51)
[2018-12-03] MEDS ORDERED: HYDROmorphONE/DILAUDID 2 MG/ML INJ ONE (15:42)
[2018-12-03] MEDS ORDERED: SUCCINYLCHOLINE CHLORIDE 200 MG/10 ML SYR IVP ONE (15:42)
[2018-12-03] MEDS ORDERED: IOTHALAMATE MEG (CONRAY) 50 ML VIAL IV ONE (15:42)
[2018-12-03] MEDS ORDERED: PROPOFOL 200 MG/20 ML VIAL ONE (15:42)
[2018-12-03] MEDS ORDERED: METOCLOPRAMIDE 10 MG/2 ML VIAL ONE (15:45)
[2018-12-03] MEDS ORDERED: KETOROLAC 30 MG/1 ML SDV ONE (16:02)
[2018-12-03] MEDS ORDERED: DEXAMETHASONE 4 MG/ML VIAL ONE (16:10)
[2018-12-03] MEDS ORDERED: ONDANSETRON 4 MG/2 ML VIAL ONE (16:10)
[2018-12-03] MEDS ORDERED: ROCURONIUM 50 MG/5 ML VIAL ONE (16:18)
[2018-12-03] MEDS ORDERED: NALOXONE HCL 0.4 MG/ML INJ IVP PRN (16:39)
[2018-12-03] MEDS ORDERED: ALBUTEROL 3 ML DEYVIAL IH PRN (16:39)
[2018-12-03] MEDS ORDERED: LABETALOL HCL 5 MG/ML 20 ML MDV IVP PRN (16:39)
[2018-12-03] MEDS ORDERED: NEOSTIGMINE METHYLSULFATE 10 MG/10 ML MDV ONE (16:48)
[2018-12-03] MEDS ORDERED: GLYCOPYRROLATE 0.2 MG/1 ML VIAL ONE ×2 (16:48)
[2018-12-03] MEDS ORDERED: HYDROmorphONE/DILAUDID 1 MG/ML INJ IVP PRN (17:21)
--- NOTE | 2018-12-03 17:23 | POSTANESTH ---
Post Anesthetic Evaluation Cardiovascular Status: Similar to Pre-Op Cond Respiratory Status: Similar to Pre-op Cond. Level of Consciousness/Mental Status: Mildly Sleepy, Arousable Pain Control: Adequate, Prn Tx Ordered Nausea/Vomiting Control: Adequate, Prn Tx Ordered Complications Possibly Related to Anesthesia: None Noted
[2018-12-03] MEDS ORDERED: HYDROmorphONE/DILAUDID 1 MG/ML INJ ONE (17:36)
[2018-12-03] MEDS: HYDROmorphONE/DILAUDID 1 MG/ML INJ IVP PRN ×2 (17:37→17:49)
[2018-12-03] MEDS: fentaNYL 100 MCG/2 ML INJ IVP PRN ×2 (17:37→17:43)
[2018-12-03] MEDS: oxyCODONE IR 5 MG TAB PO PRN (20:04)
[2018-12-04] MEDS: oxyCODONE IR 5 MG TAB PO PRN (02:47)
[2018-12-04] MEDS: traMADol 50 MG TAB PO PRN (03:38)
[2018-12-04 04:17] LABS: PLATELET COUNT 298 10^3/uL (150-400)
[2018-12-04] MEDS: KETOROLAC 15 MG/1 ML SDV IVP SCH ×2 (05:59→11:43)
[2018-12-04 08:38] VITALS: BP 115/78
[2018-12-04] MEDS: NICOTINE 14 MG/24 HR PATCH TD SCH (08:46)
[2018-12-04] MEDS: ATENOLOL 25 MG TAB PO SCH (08:47)
[2018-12-04] MEDS: PARoxetine HCL 20 MG TAB PO SCH (08:47)
--- NOTE | 2018-12-04 11:16 | ASDISCHSUM ---
Discharge Information Plan Status:Home with No Needs Medically Cleared to Leave:12/04/2018 Discharge Date:12/04/2018 CM D/C Disposition:Home, Routine, Self-Care ADT D/C Disposition:Home, Routine, Self-Care Projected Discharge Date:12/04/2018 Transportation at D/C: Discharge Delay Reason: Follow-Up Date:12/04/2018 Discharge Slot: Final Diagnosis: Placement Information Patient Contact Information Contact Name:KYM Relationship:Other Address: Work Phone: City: [facility] Phone: State/Zip Code: Email: Financial Information Financial Class:Medicaid Primary Plan Desc:[employer] [place] Primary Plan Number:[id number] Secondary Plan Desc: Secondary Plan Number: Assessment Information LACE LACE Length of stay for Answers: 1 day current admission Acuity / Level of Answers: Yes Care: Did the patient have an inpatient admission? Comorbidities - select Answers: Other Notes: HTN all that apply # of Emergency department Answers: 1-2 visits in the last 6 months Social determinants Answers: Mental health diagnosis (anxiety, depression, pers onality disorders, etc.) Score: 9 Date Signed: 12/04/2018 11:13 AM Electronically Signed By:Reba Gilman RN [facility] Progress Note CM Note CM Note Notes: Pt is a 43 y/o female admitted for right upper quadrant pain. Pt went to have her gallbladder removed this afternoon and CM was unable to meet w/ her. Pt has a hx of etoh and has been sober for 6 months. Pt gets naltrexone injections to help w/ etoh cravings. CM made a referral to [facility]. Pt has a hx of depression and anxiety. 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 Pt will most likely d/c independent. No therapies ordered at this time. CM available for changes. Plan: Independent Date Signed: 12/03/2018 02:46 PM Electronically Signed By:ANDREA Ahn Case Management Discharge Plan Note Case Management Discharge Discharge Order Complete? Answers: Yes Patient to Obtain Answers: Independently Medications Discharge Comments Notes: 12/04/2018 Case Management Note Pt to discharge independent with follow up as directed. Date Signed: 12/04/2018 11:14 AM Electronically Signed By:Reba Gilman RN Intervention Information
--- NOTE | 2018-12-11 22:11 | GDS ---
[f rep st] DISCHARGE SUMMARY DISCHARGE DIAGNOSES: 1. Acute cholecystitis, status post cholecystectomy. 2. Gallstone pancreatitis, improved. 3. Hypertension. 4. Depression. 5. History of alcohol abuse, in remission, on monthly naltrexone injections. 6. Nonspecific liver lesion, recommend outpatient followup. ELECTRICIAN TECHNICIAN: Dr. Jayden Simon, general surgery. PROCEDURES: 1. Abdominal ultrasound, December 03, 2018, showed cholelithiasis with gallbladder wall thickening and per icholecystic fluid consistent with acute cholecystitis. In addition, there is a nonspecific hyperech oic lesion in left lobe of the liver, 2 cm. 2. Laparoscopic cholecystectomy, December 03, 2018. HISTORY: For details, please see history and physical dated December 03, 2018. In brief, the patient is a 43-year-old female with history of alcohol abuse, who has maintained sobriety with monthly naltrexon e injections, as well as hypertension and depression, presented to the emergency department with righ t upper quadrant abdominal pain. Workup was consistent with acute cholecystitis. [facility]. HOSPITAL COURSE: The patient was admitted to the med/surg unit. She was evaluated by General Surger y and treated with ceftriaxone and Flagyl. She was taken to the operating room and had a laparoscopi c cholecystectomy without complication. The following day, she was in good spirits, tolerating a ful l diet. Her pain was controlled, and she strongly wished to discharge home. I discussed the case wi th Dr. Simon, and he was comfortable with her discharging home with close outpatient followup. DISPOSITION: Patient is discharged home in stable condition. FOLLOWUP: 1. Dr. Jayden Simon in 1 week. 2. Primary Care. DISCHARGE MEDICATIONS: Please see [employer] for completed outpatient medication list. New medication s on discharge include: 1. Tylenol 1000 mg p.o. q.8 hours p.r.n. 2. Oxycodone 5 to 10 mg p.o. q.6 hours p.r.n., #20, no refills. 3. Colace 100 mg p.o. b.i.d., #30, no refills. She will continue all other outpatient medications as previously prescribed. /[id number]/MODL
--- NOTE | 2018-12-11 23:16 | GOP ---
[f rep st] OPERATIVE REPORT DATE OF OPERATION: SURGEON: Jayden Simon MD DISTRICT CAPTAIN: Shawna Lua MACHINE SETTER. ANESTHESIOLOGIST: Mazin Clay MD. PREOPERATIVE DIAGNOSIS: Gallstone pancreatitis. POSTOPERATIVE DIAGNOSIS: Gallstone pancreatitis. PROCEDURE PERFORMED: Laparoscopic cholecystectomy with intraoperative cholangiogram. FINDINGS: SPECIMENS: Gallbladder to permanent pathology. ESTIMATED BLOOD LOSS: 10 mL. DESCRIPTION OF PROCEDURE: Patient was brought to the operating room after induction of endotracheal anesthesia in the supine position. Abdomen was prepped with chlorhexidine and draped sterilely. Burak e-out procedure was then performed according to institutional standards. Local anesthetic was infuse d in skin and subcutaneous tissues of the trocar sites, and supraumbilical trocar placement was done in standard fashion. The abdomen was inspected for any other pathology. There was a small amount of free fluid in the right upper quadrant. Otherwise the gallbladder had adhesions to the duodenum and the omentum. The patient was placed in left down and head up position to facilitate the surgery, an d the gallbladder fundus was grasped with a blunt grasper, elevated the cystic duct, and cystic arter y identified in the triangle of Calot, and a ductotomy was created to allow passage of a cholangiocat heter through a separate stab incision. The cholangiogram was performed under fluoroscopy, demonstra ting normal flow of the contrast into the biliary tree. The intra and extrahepatic biliary systems w ere not dilated, and there was no sign of a filling defect. The left and right hepatic radicles were opacified, and no other pathology was noted. After completion of cholangiogram, the catheter was re moved. The cystic duct and cystic artery were triply clipped and ligated. The gallbladder was taken off a somewhat intrahepatic position using electrocautery. Hemostasis was assured. The gallbladder was brought out through the umbilical incision using a blunt grasper, and hemostasis was then assure d. Abdomen was deflated. Working trocars were removed. The fascia was reapproximated using 0 Vicry l at the level of the umbilicus. Small ports were closed at the skin level using 4-0 Monocryl. Derm abond was applied. Patient was awakened, extubated, and taken to recovery in stable condition. No i mmediate complications. COMPLICATIONS: There were no complications. /[id number]/MODL
== END 2018-12-04 12:11 | disposition home or self-care (01) | DRG 263 ==
LOC: CED 01:13 → CEDHOLD 05:03 → F2W 06:33
PROVIDERS: ADMIT Student in an Organized Health Care Education/Training Program; ATTEND Student in an Organized Health Care Education/Training Program
DX: K85.10 Biliary acute pancreatitis without necrosis or infection (principal); K80.10 Calculus of gallbladder with chronic cholecystitis without obstruction; I10 Essential (primary) hypertension; F17.210 Nicotine dependence, cigarettes, uncomplicated
CPT/HCPCS: 76705-PO; 80053-ER; 81025-ER; 83605-ER; 84484-ER; 85025-QW-ER; 96361-ER; 96374-ER; 96375-ER; 96376-ER; 99284-ER; 99285-ER; J0330; J0696; J1100; J1170; J1885; J2060; J2250; J2405; J2550; J2704; J2765; J3010; Q9961